=== PATIENT | male | born 1975 | race Caucasian/White ===

== ENCOUNTER → 2022-06-29 | Outpatient (CLI) | payer BC ==
--- NOTE | 2022-06-29 16:51 | P.SLEEP ---
History of Present Illness DATE: 06/29/2022 CONSULTATION/NEW PATIENT EVALUATION HISTORY OF PRESENT ILLNESS/SLEEP-WAKE EVALUATION: 47-year-old gentleman had been evaluated in the sleep center for possible obstructive sleep apnea hypopnea syndrome. SLEEP SCHEDULE: Usually sleep schedule on weekdays from 9:30 PM to 4:30 AM, on weekend from 10 PM until 6 AM. FALLING ASLEEP: No problems with falling asleep, no TV in bedroom. DURING SLEEP: Patient usually sleeps on the back and side position with snoring. No history of hypnogogical hallucinations, sleep paralysis, or cataplexy. DURING THE DAY/WAKE STATE: Patient denied any significant excessive daytime sleepiness. [place] sleepiness scale is 3. Usually patient doesn't take naps. PAST MEDICAL HISTORY: Hypertension, cardiac arrhythmia. PAST SURGICAL HISTORY: Left ear repair. MEDICATIONS: Lisinopril. SOCIAL HISTORY: Negative for smoking, alcohol consumption occasional. FAMILY HISTORY: Heart problems, hyperlipidemia. REVIEW OF SYSTEMS: Snoring. No fevers. No double vision. No recent chest pain. No shortness of breath. No abdominal pain. No bleeding episodes. No blood in urine. No seizure episodes. PHYSICAL EXAMINATION: GENERAL: A pleasant patient without any distress. VITAL SIGNS: BP 127/83 , HR 76 , RR 16 , weight 252 pounds, height 5 foot 8 inches, body mass index 38.3 . HEENT: PERRLA, EOMI. Evaluation of oropharynx showed tongue protrudes midline, low position of soft palate Mallampati 34. NECK: Supple. No JVD. Thyroid is not palpable. 17-1/2 inches in circumference. LUNGS: Clear to percussion and to auscultation. Good air exchange. No wheezing or rhonchi. HEART: S1, S2 regular. No murmurs, gallops or rubs. ABDOMEN: Soft and nontender. Bowel sounds are present. No organomegaly appreciated. Obese EXTREMITIES: No clubbing or cyanosis. HEALTH INSURANCE ADJUSTER: Awake, alert, and oriented x3. Cranial nerves 2 to 7 intact. There is no fasciculation or atrophy noted. No focal deficits observed. ASSESSMENT: 1. Snoring, extremely low position of soft palate Mallampati 34, wide neck 17- 1/2 inches in circumference. Obstructive sleep apnea hypopnea syndrome. 2. Obesity, body mass index 38.3. 3. Hypertension. 4. History of cardiac arrhythmia. 5 status post left ear repair. 6. class b truck driver PLAN: 1. Home sleep apnea test. 2. CPAP/BiPAP titration if sleep study confirms obstructive sleep apnea- hypopnea syndrome. 3. Preferable position during sleep on the side. 4. No driving if patient feels any sleepiness. Patient is aware of civil and criminal liability for unsafe driving. 5. Sleep hygiene with regular sleep time for at least 7.5-8 hours. 6. Watching and losing weight. Thank you very much for referring this patient for consultation. Sincerely, Arben Collins MD, PhD, FAASM. Diplomat of [place] [employer], Sleep Medicine Board by [place] [employer] [employer]est Control Technician of [facility] [place] Sleep Note - Sleep Note Sleep Note: Temperature: Pulse Rate: Respiratory Rate: Blood Pressure: SpO2: Height: Weight: BMI: Neck Circumference:
== END | disposition home or self-care (01) ==
LOC: SLEEP 15:09
PROVIDERS: ATTEND Internal Medicine
DX: G47.33 Obstructive sleep apnea (adult) (pediatric) (principal); R06.83 Snoring; I10 Essential (primary) hypertension; I49.9 Cardiac arrhythmia, unspecified; Z68.38 Body mass index [BMI] 38.0-38.9, adult
CPT/HCPCS: 99202

== ENCOUNTER → 2022-11-03 | Outpatient (CLI) | payer BC ==
--- NOTE | 2022-11-03 15:53 | P.PN ---
Subjective DATE: 11/03/2022 FOLLOW UP VISIT. Patient with obstructive sleep apnea hypopnea syndrome return to sleep center for follow-up visit. Recently patient had sleep study which documented obstructive sleep apnea hypopnea syndrome. Patient was initiated on PAP therapy and today is first visit after treatment was started. Patient was able to use PAP equipment most of the nights. Patient doesn't feel comfortable with the full face mask. [place] sleepiness scale is 0, which is perfect. I checked information from PAP unit. PAP unit pressure 5-16, average 11.5 cm H2O. Usage is 73% and 60 % for more then 4 hours, average 4.25 hours per night. Leak is 17.2 l/m, which is in acceptable range. Apnea Hypopnea Index is 0.9, which is normal. MEDICATIONS:1. Lisinopril During physical exam: GENERAL: A pleasant patient without any distress. VITAL SIGNS: BP 164/76, HR 82, RR 16 , weight 266, temperature 98.1, oxygen saturation at room air 97% . HEENT: PERRLA, EOMI.low position of soft palate, Mallapati 3-4 . NECK: Supple. No JVD. LUNGS: Clear to percussion and to auscultation. Good air exchange. No wheezing or rhonchi. HEART: S1, S2 regular. ABDOMEN: Soft and nontender. Obese EXTREMITIES: No clubbing or cyanosis. TOOL ROOM MACHINIST: Awake, alert, and oriented x3. No focal deficit. Impressions: 1. Obstructive sleep apnea-hypopnea syndrome. Patient demonstrated borderline compliance with treatment, normal respiration on CPAP. Patient does not feel comfortable with full face mask. 2. Obesity. 3. Hypertension. 4. Status post left unit repair. 5. 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 Plan: 1. Continue using PAP equipment every night for the whole night. Prescription for nasal pillow mask. I decreased range of pressure to 5-12 centimeters of water. 2. To change air filter at least 1-2 times per month. 3. PAP unit should stay lower then position of the head. 4. Advised patient to remove all remaining water from humidifier canister daily and make it dry after each usage. Refill canister with fresh distilled water before each usage. 5. Sleep hygiene with regular time in bed for at least 8 hours. 6. Precautions related to driving. No driving if feel any sleepiness. 7. I will maintain prescription for PAP supplies including mask, tube, filters. 8. Follow up visit in 2-3 months or earlier if patient has any problems. 9. Watching and losing weight. Thank you very much for allowing me to participate in the management of your patient. Arben Collins MD, PhD, FAASM. Diplomat of [place] [employer], Sleep Medicine Board by [place] [employer] Reproducer [facility]
== END ==
LOC: SLEEP 14:50
PROVIDERS: ATTEND Internal Medicine
DX: G47.33 Obstructive sleep apnea (adult) (pediatric) (principal); E66.9 Obesity, unspecified; I10 Essential (primary) hypertension; Z98.890 Other specified postprocedural states; Z99.89 Dependence on other enabling machines and devices
CPT/HCPCS: 99212